=== PATIENT | male | born 1995 | race Caucasian/White ===

== ENCOUNTER 2017-02-09 23:44 | Emergency (ER) | payer OTHER ==
[~2017-02-09] VITALS: Ht 182.9 cm; Wt 79.2 kg
[2017-02-09 23:54] VITALS: TEMP 37; Ht 182.9 cm; Wt 79.2 kg
--- NOTE | 2017-02-10 00:42 | EMERGENCY ROOM VISIT NOTE ---
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 During his hockey game earlier this evening,the patient was falling to the ice, with his left leg slightly bent and flat on the ice, when his right leg crushed down on top of the left knee. He states he heard a pop and felt immediate pain. He could not apply any pressure to the area and needed assistance to leave the ice and to ambulate to ED. Rates current pain level of 8 but declines pain management. He declines any other trauma, head injury, confusion, headache, nausea/vomiting and is otherwise feeling well. Has had several concussions and broken bones in the past but none requiring surgery. Review of Systems See HPI for pertinent positives and negatives. A total of ten systems were reviewed and were otherwise negative. Past Medical/Surgical History Medical Problems: (1) Chest pain Social History Smoking Status: Never Smoker Housing Status: lives with roommate Occupation Status: [employer] Current/Historical Medications No Active Prescriptions or Reported Meds Physical Exam Vital Signs Date Time Temp Pulse Resp B/P (MAP) Pulse Ox O2 Delivery O2 Flow Rate FiO2 02/10/17 01:52 72 18 118/66 96 Room Air 02/09/17 23:54 37.0 107 18 114/66 96 Room Air Pain Rating (0-10): 8 Physical Exam GENERAL: Awake, alert, well-appearing, in no distress HENT: Normocephalic, atraumatic. Oropharynx unremarkable. EYES: Normal conjunctiva. Sclera non-icteric. NECK: Supple. No nuchal rigidity. FROM. No JVD. RESPIRATORY: Clear to auscultation. CARDIAC: Regular rate, normal rhythm. Extremities warm and well perfused. Pulses equal. ABDOMEN: Soft, non-distended. No tenderness to palpation. No rebound or guarding. No masses. RECTAL: Deferred. MUSCULOSKELETAL: Chest examination reveals no tenderness. The back is symmetrical on inspection without obvious abnormality. There is no CVA tenderness to palpation. Left knee mildly swollen compared to right. Tender to palpation along medial tibial joint line and medial patella, medial infrapatellar ligament. Patient is sitting in wheelchair with knee bent to 90 degrees. He is unable to extend knee to more than 120 degrees. Neurovascular supply LOWER EXTREMITIES: Calves are equal size bilaterally and non-tender. No edema. No discoloration. NEURO: Normal sensorium. No sensory or motor deficits noted. SKIN: No rash or jaundice noted. Medical Decision & Procedures ED Course 0000: full history and physical examination obtained from patient and family. 0015: Discussed case with Dr. Marte, ordered left knee xray, 2 views 0145: informed patient of xray results. ordered knee immobilizers, crutches. Discussed follow up with ortho next week, for possible investigation for ligamentous injury, PT referral, etc. Patient and family amenable. Medical Decision Prior records/ancillary studies reviewed. Triage Nursing notes reviewed. Additional history obtained from patient and family. The patient's history was concerning for musculoskeletal injury Differential diagnosis: Etiologies such as fracture, dislocation, soft tissue injury, as well as other traumatic pathologies were entertained. Physical examination findings: As above. The patients vitals were stable aside from tachycardia of 104. ER treatment provided: Procedures: immobilization of left knee with crutches. Diagnostic interpretation by me: Imaging studies: X-ray, 2 views left knee. No fracture noted. The patient and family were informed about the findings as listed above. All questions were answered and they were pleased with the treatment. Return instructions were outlined and the patient was discharged in stable condition. Outpatient prescription management: homepack of 600mg ibuprofen Referral: The patient was referred back to team head athletic trainer/sports medicine/orthopedics for follow-up in 2 to 3 days for a recheck of the current condition. Impression Primary Impression: Left knee pain Departure Information Dispostion Home / Self-Care Condition GOOD Prescriptions No Active Prescriptions or Reported Meds Referrals No Doctor, Assigned (PCP) Patient Instructions ED Fx Lower Ext, [facility] Additional Instructions ORTHOPEDIC INSTRUCTIONS: Ibuprofen(Motrin, Advil): may be used for fever or pain. Use 600mg every six hours as needed. Take with food. Avoid using more than 2400mg in a 24 hour period. Do not use 2400mg per day for more than three consecutive days without physician direction. Prolonged inappropriate use can lead to stomach upset or ulcers. This is available over the counter and typically comes in 200mg tablets. (AND/OR) Acetaminophen(Tylenol): may be used for fever or pain. Use 1000mg every eight hours as needed. Avoid using more than 3000mg in a 24 hour period. This is available over the counter. Read all the package inserts or medication information paperwork provided. If you have any questions or concerns call your primary provider, pharmacist or the ER for assistance. Ice compresses for 20 minutes at a time four times daily for 2-3 days. Use the crutches as instructed. Rest and elevate your injury as discussed. Continue current medications. Return to the ER immediately for any numbness, tingling, severe pain, extreme swelling in the extremity or as needed. Call Orthopedics tomorrow to arrange follow up for your injury. This follow up is crucial to proper healing and minimizing potential termite inspector problems from the injury. If you have any problems getting in with or in contact with the Orthopedist call the ER immediately for assistance Resident Tracking Resident Involvement: Resident Care Provided Care Provided: Adult ED Problem Qualifiers Primary Impression: Left knee pain Chronicity: acute Qualified Codes: M25.562 - Pain in left knee
[2017-02-10 01:52] VITALS: BP 118/66; PULSE 72; O2SAT 96
[2017-02-10] MEDS ORDERED: MOTRIN HOME PACK 600 MG (4)BTL PO ONE (02:00)
--- NOTE | 2017-02-10 02:03 | EMERGENCY ROOM VISIT NOTE ---
ED Visit Note First contact with patient: 23:58 Pt with l knee pain after hockey; agree with resident eval; Negative anterior drawer, able to terminally extend left knee; NVI distally; plam, f/u, nsaids, knee immobilizer, ortho referral. Problem List Medical Problems: (1) Chest pain Status: Chronic Current/Historical Medications No Active Prescriptions or Reported Meds Allergies Coded Allergies: No Known Allergies (Unverified , 02/10/17) Vital Signs Date Time Temp Pulse Resp B/P (MAP) Pulse Ox O2 Delivery O2 Flow Rate FiO2 02/10/17 01:52 72 18 118/66 96 Room Air 02/09/17 23:54 37.0 107 18 114/66 96 Room Air Departure Information Impression Primary Impression: Left knee pain Dispostion Home / Self-Care Condition GOOD Prescriptions No Active Prescriptions or Reported Meds Referrals No Doctor, Assigned Forms HOME CARE DOCUMENTATION FORM, IMPORTANT VISIT INFORMATION Patient Instructions [facility], ED Fx Lower Ext Additional Instructions ORTHOPEDIC INSTRUCTIONS: Ibuprofen(Motrin, Advil): may be used for fever or pain. Use 600mg every six hours as needed. Take with food. Avoid using more than 2400mg in a 24 hour period. Do not use 2400mg per day for more than three consecutive days without physician direction. Prolonged inappropriate use can lead to stomach upset or ulcers. This is available over the counter and typically comes in 200mg tablets. (AND/OR) Acetaminophen(Tylenol): may be used for fever or pain. Use 1000mg every eight hours as needed. Avoid using more than 3000mg in a 24 hour period. This is available over the counter. Read all the package inserts or medication information paperwork provided. If you have any questions or concerns call your primary provider, pharmacist or the ER for assistance. Ice compresses for 20 minutes at a time four times daily for 2-3 days. Use the crutches as instructed. Rest and elevate your injury as discussed. Continue current medications. Return to the ER immediately for any numbness, tingling, severe pain, extreme swelling in the extremity or as needed. Call Orthopedics tomorrow to arrange follow up for your injury. This follow up is crucial to proper healing and minimizing potential exterminator helper problems from the injury. If you have any problems getting in with or in contact with the Orthopedist call the ER immediately for assistance
--- NOTE | 2017-02-10 06:00 | DIAGNOSTIC IMAGING REPORT ---
L KNEE 1 OR 2 VIEWS ROUTINE HISTORY: 21 years-old Male left knee injury acute left knee pain status post trauma COMPARISON: None available TECHNIQUE: 2 views of the left knee FINDINGS: Trace knee joint effusion. No acute fracture, dislocation or significant degenerative changes. Mild soft tissue swelling circumferentially. No opaque foreign body. IMPRESSION: Trace knee joint effusion and mild soft tissue swelling without acute bony abnormality. The above report was generated using voice recognition software. It may contain grammatical, syntax or spelling errors. Electronically signed by: Aime Rosales M.D. 02/10/2017 5:59 AM Dictated Date/Time: 02/10/2017 5:58 AM
== END 2017-02-10 02:00 | disposition home or self-care (01) ==
LOC: C.EDB 23:45 → C.EDA 02-10 02:00
DX: M25.562 Pain in left knee (principal)

== ENCOUNTER → 2017-02-19 | Outpatient (CLI) | payer OTHER ==
--- NOTE | 2017-02-19 14:40 | DIAGNOSTIC IMAGING REPORT ---
MRI left knee no contrast CLINICAL HISTORY: LEFT KNEE TWISTING INJURY left knee pain COMPARISON STUDY: Conventional radiographic study dated 02-25 FINDINGS: Imaging was performed in the sagittal, coronal, and axial planes. The patellar retinacular structures appear intact. The medial and lateral collateral ligaments appear intact. The anterior and posterior cruciate ligaments appear intact. The patellar and quadriceps tendons appear intact. No meniscal tears are visualized. There is minor nonspecific edema within the anterior tibial tuberosity there is a 9 mm lesion within the medial femoral metaphysis, likely representing a fibrous cortical defect. This has nonaggressive features on the most recent conventional radiographic study. IMPRESSION: 1. No evidence of meniscal tear. No evidence of cruciate or collateral ligament disruption 2. Minor nonspecific edema within the anterior tibial tuberosity 3. 9 mm lesion within the medial femoral metaphysis, likely representing a fibrous cortical defect 3. 9 mm lesion within the medial femoral metaphysis, likely representing a benign fibrous cortical defect. Electronically signed by: Ramakrishna Carrillo M.D. 02/19/2017 2:38 PM Dictated Date/Time: 02/19/2017 2:34 PM
== END | disposition home or self-care (01) ==
LOC: C.MRI 13:40
PROVIDERS: ATTEND Internal Medicine
DX: S89.92XA Unspecified injury of left lower leg, initial encounter (principal); X58.XXXA Exposure to other specified factors, initial encounter; M25.862 Other specified joint disorders, left knee